=== PATIENT | female | born 1960 | race Caucasian/White ===

== ENCOUNTER 2023-03-01 11:57 | Outpatient (CLI) | payer OTHER ==
[2023-03-01 14:01] LABS: #Basophils 0.1 10x3/uL (0.0-0.2); #Eosinphils 0.1 10x3/uL (0.0-0.5); #Monocytes 0.5 10x3/uL (0.0-1.1); #Neutrophils 4.2 10x3/uL (1.5-8.4); %Basophils 0.7 % (0.0-2.0); %Eosinophils 1.9 % (0.0-6.0); %Lymphocytes 31.7 % (18.0-47.0); %Monocytes 6.8 % (0.0-10.0); %Neutrophils 58.5 % (40.0-75.0); Hemoglobin 15.3 g/dL (12.0-15.5); Mean Corpuscular HGB CONC 32.7 g/dL (32.0-36.0); Mean Corpuscular Hemoglobin 29.5 pg (27.0-33.0); Mean Corpuscular Volume 90.3 fl (81.6-98.3); Mean Platelet Volume 8.5 fl (7.4-10.4); Platelet Count 342 10x3/uL (150-450); RBC Distribution Width 12.8 % (11.5-14.5); Red Blood Cell (RBC) Count 5.18 10x6/uL (3.90-5.03); White Blood Cell (WBC) Count 7.2 10x3/uL (3.5-10.5)
[2023-03-01 14:15] LABS: Prothrombin Time 10.7 sec (9.5-12.1)
[2023-03-01 14:19] LABS: Anion Gap 13 mmol/L (10-20); BUN (Urea Nitrogen) 16 mg/dL (9.8-20.1); Calc. Creatinine Clearance 0 mL/min (70-130); Calcium 9.5 mg/dL (7.8-10.44); Carbon Dioxide 27 mmol/L (23-31); Chloride 101 mmol/L (98-107); Estimated GFR 85; Glucose 107 mg/dL (80-115); Potassium 4.2 mmol/L (3.5-5.1); Sodium 137 mmol/L (136-145)
== END 2023-03-01 11:58 | disposition home or self-care (01) ==
LOC: LABBT 11:57
PROVIDERS: ATTEND Orthopaedic Surgery
DX: Z01.818 Encounter for other preprocedural examination (principal); M16.11 Unilateral primary osteoarthritis, right hip
CPT/HCPCS: 80048; 85025; 85610; 87081; 93005; 93010

== ENCOUNTER 2023-03-06 05:36 | Observation (INO) | payer OTHER ==
[2023-03-01 12:25] VITALS: BMI 21.7
[2023-03-06] MEDS ORDERED: Vancomycin 1 GM/200 ML (FROZEN) BAG ONE (06:00)
[2023-03-06] MEDS ORDERED: Sodium Chloride 0.9% 100 ML ONE ×2 (06:00→06:50)
[2023-03-06] MEDS ORDERED: Tranexamic Acid 1,000 MG/10 ML VIAL ONE (06:00)
[2023-03-06] MEDS ORDERED: Midazolam HCl 2 mg/2 ml Vial ONE (06:06)
[2023-03-06] MEDS ORDERED: fentaNYL PF 100 MCG/2 ML SYRINGE ONE (06:06)
[2023-03-06] MEDS ORDERED: Lidocaine 2% 6 ML (Jelly) SYR ONE (06:07)
[2023-03-06] MEDS ORDERED: PHENYLEPHRINE-NS 100 MCG/ML 10 ML SYRINGE ONE (06:30)
[2023-03-06] MEDS ORDERED: Lidocaine 1% PF 5 ML VIAL ONE (06:30)
[2023-03-06] MEDS ORDERED: ePHEDrine Sulfate 50 MG/10 ML VIAL ONE (06:30)
[2023-03-06] MEDS ORDERED: Rocuronium Bromide 10 MG/ML (10ML VIAL) ONE (06:30)
[2023-03-06] MEDS ORDERED: PROPOFOL 200 MG/20 ML VIAL ONE (06:30)
[2023-03-06] MEDS ORDERED: Lidocaine 1.5% w/Epi 1:200K 30 ML VIAL (Epid Use) ONE (06:30)
[2023-03-06] MEDS ORDERED: CEFAZOLIN 2 GM VIAL ONE (06:50)
[2023-03-06] MEDS ORDERED: Bupivacaine 0.25% HCL 30 ML VIAL ONE (07:10)
[2023-03-06] MEDS ORDERED: Bupivacaine/Epinephrine 0.25% 30 ML VIAL ONE (07:10)
[2023-03-06] MEDS ORDERED: fentaNYL 50 mcg/mL 1 mL Vial ONE (07:41)
[2023-03-06] MEDS ORDERED: Moisturizing Cream (Eucerin) 113 GM JAR TOP PRN (08:15)
[2023-03-06] MEDS ORDERED: diphenhydrAMINE 50 MG/ML VIAL IM PRN (08:15)
[2023-03-06] MEDS ORDERED: Promethazine HCl 25 MG/ML VIAL IM PRN ×2 (08:15→09:23)
[2023-03-06] MEDS ORDERED: Ondansetron PF 4 MG/2 ML Vial IVP PRN ×2 (08:15→09:23)
[2023-03-06] MEDS ORDERED: HYDROcodone/Acetaminophen 5/325 mg Tablet PO PRN ×2 (08:15)
[2023-03-06] MEDS ORDERED: Naloxone HCl 0.4 mg/ml Vial IV PRN (08:15)
[2023-03-06] MEDS ORDERED: diphenhydrAMINE 50 MG/ML VIAL IVP PRN (08:15)
[2023-03-06] MEDS ORDERED: Naloxone HCl 0.4 mg/ml Vial IVP PRN (08:15)
[2023-03-06] MEDS ORDERED: traMADol HCl 50 MG TAB PO PRN ×2 (08:15)
[2023-03-06] MEDS ORDERED: Zolpidem Tartrate 5 MG TAB PO PRN ×2 (08:15→09:23)
[2023-03-06] MEDS ORDERED: Bupivacaine 0.25% 10 ML VIAL EPIDURAL PRN (08:15)
[2023-03-06] MEDS ORDERED: Promethazine HCl 25 MG SUPP PR PRN (08:15)
[2023-03-06] MEDS ORDERED: FENTANYL 500 MCG/10 ML VIAL 500 MCG, Bupivacaine 0.75% 10 ML in Sodium Chloride 0.9% 80 ML EPIDURAL SCH (08:15)
[2023-03-06] MEDS ORDERED: SUGAMMADEX SODIUM 200 MG/2 ML VIAL ONE (08:39)
[2023-03-06] MEDS ORDERED: Ondansetron HCl/PF 4 MG/2 ML Vial IVP PRN (09:07)
[2023-03-06] MEDS ORDERED: Acetaminophen 325 MG TAB PO PRN (09:23)
[2023-03-06] MEDS ORDERED: diphenhydrAMINE 25 MG CAP PO PRN (09:23)
[2023-03-06] MEDS ORDERED: Aspirin 81 mg Enteric Coated Tablet PO SCH (10:45)
[2023-03-06] MEDS ORDERED: Senokot S 8.6-50 MG TAB PO SCH (10:45)
[2023-03-06] MEDS ORDERED: Multivitamin W/ Minerals 1 TAB PO SCH (10:45)
[2023-03-06] MEDS ORDERED: Ferrous Gluconate 324 MG TAB PO SCH (10:45)
[2023-03-06] MEDS: diphenhydrAMINE 25 MG CAP PO PRN ×3 (13:05→23:40)
[2023-03-06] MEDS: CEFAZOLIN 2 GM in Sodium Chloride 0.9% 100 ML IVPB SCH ×2 (13:05→23:27)
[2023-03-06] MEDS: Ketorolac Tromethamine 30 MG/ML VIAL IVP SCH ×3 (13:06→23:26)
[2023-03-06] MEDS: Senokot S 8.6-50 MG TAB PO SCH (20:05)
[2023-03-06] MEDS: Ferrous Gluconate 324 MG TAB PO SCH (20:05)
[2023-03-06] MEDS: Aspirin 81 mg Enteric Coated Tablet PO SCH (20:05)
[2023-03-07] MEDS: Ketorolac Tromethamine 30 MG/ML VIAL IVP SCH ×2 (04:42→11:35)
[2023-03-07] MEDS: diphenhydrAMINE 25 MG CAP PO PRN (04:42)
[2023-03-07 05:47] LABS: Hemoglobin 13.1 g/dL (12.0-16.0); Mean Corpuscular HGB CONC 33.4 g/dL (32.0-36.0); Mean Corpuscular Hemoglobin 30.7 pg (27.0-31.0); Mean Corpuscular Volume 91.8 fl (78.0-98.0); Mean Platelet Volume 8.3 fL (7.4-10.4); Platelet Count 257 10x3/uL (130-400); RBC Distribution Width 12.9 % (11.5-14.5); Red Blood Cell (RBC) Count 4.27 mill/uL (4.20-5.40); White Blood Cell (WBC) Count 16.8 10x3/uL (4.8-10.8)
[2023-03-07] MEDS: Ferrous Gluconate 324 MG TAB PO SCH (08:55)
[2023-03-07] MEDS: Aspirin 81 mg Enteric Coated Tablet PO SCH (08:55)
[2023-03-07] MEDS: Senokot S 8.6-50 MG TAB PO SCH (08:55)
[2023-03-07] MEDS ORDERED: HYDROcodone/Acetaminophen 10/325 mg Tablet PO PRN ×2 (09:00→09:01)
[2023-03-07] MEDS ORDERED: Multivitamin W/ Minerals 1 TAB PO SCH (09:00)
[2023-03-07 12:51] VITALS: BP 133/77; TEMP 98.5
== END 2023-03-07 15:19 | disposition home or self-care (01) ==
LOC: SDC 05:36 → SURG B 11:48
PROVIDERS: ADMIT Orthopaedic Surgery; ATTEND Orthopaedic Surgery
PROC: 0SR90JZ Replacement of Right Hip Joint with Synthetic Substitute, Open Approach (ICD-10-PCS; principal; 2023-03-07)
DX: M16.11 Unilateral primary osteoarthritis, right hip (principal); F32.A Depression, unspecified; Z79.82 Long term (current) use of aspirin; Z79.899 Other long term (current) drug therapy
CPT/HCPCS: 36415; 72170; 85027; 96365; 96375; 96376; C1776; G0378; J1885; J2001; J2250; J2704; J3010; J3370-JW; J3490; S0020

== ENCOUNTER 2024-07-30 13:30 | Outpatient (CLI) | payer OTHER ==
[2024-07-30 15:22] LABS: #Basophils 0.04 10x3/uL (0.0-0.2); %Basophils 0.4 % (0.0-1.0); %Eosinophils 1.6 % (0.0-10.0); %Lymphocytes 28.1 % (21.0-51.0); %Monocytes 6.3 % (0.0-10.0); %Neutrophils 63.2 % (42.0-75.0); Hematocrit 46.9 % (36.0-47.0); Hemoglobin 15.7 g/dL (12.0-16.0); Mean Corpuscular HGB CONC 33.5 g/dL (32.0-36.0); Mean Corpuscular Hemoglobin 30.3 pg (27.0-31.0); Mean Corpuscular Volume 90.4 fL (78.0-98.0); Mean Platelet Volume 8.8 fL (7.4-10.4); Platelet Count 326 10x3/uL (130-400); RBC Distribution Width 13.1 % (11.5-14.5); Red Blood Cell (RBC) Count 5.19 mill/uL (4.20-5.40)
[2024-07-30 15:36] LABS: INR-International Normal Ratio 0.9; Prothrombin Time 12.5 sec (12.0-14.7)
[2024-07-30 16:00] LABS: Anion Gap 15 mmol/L (10-20); BUN (Urea Nitrogen) 14 mg/dL (9.8-20.1); Calc. Creatinine Clearance 0 mL/min (70-130); Calcium 9.4 mg/dL (7.8-10.44); Carbon Dioxide 26 mmol/L (23-31); Chloride 102 mmol/L (98-107); Estimated GFR 82; Glucose 87 mg/dL (80-115); Potassium 4.2 mmol/L (3.5-5.1); Sodium 139 mmol/L (136-145)
== END 2024-07-30 13:31 | disposition home or self-care (01) ==
LOC: LABBT 13:30
PROVIDERS: ATTEND Orthopaedic Surgery
DX: Z01.818 Encounter for other preprocedural examination (principal); M16.12 Unilateral primary osteoarthritis, left hip
CPT/HCPCS: 80048; 85025; 85610; 87081; 93005; 93010